=== PATIENT | female | born 1985 | race Caucasian/White ===

== ENCOUNTER 2020-01-03 15:00 | Emergency (ER) | payer MEDICAID ==
[~2020-01-03] VITALS: Ht 157.5 cm; Wt 78.9 kg
[2020-01-03 15:12] VITALS: BP 124/96
--- NOTE | 2020-01-03 15:24 | NUR ---
34 YO FEMALE CO LOWER QUADRANT ABDOMINAL PAIN X 3 WEEKS. DENIES DYSURIA. NKA HX 2 ECTOPIC PREGNANCIES NO RX
[2020-01-03 16:00] LABS: APPEARANCE,URINE CLEAR (CLEAR); BILIRUBIN,URINE 1+ (NEGATIVE); BLOOD, URINE TRACE-I (NEGATIVE); COLOR,URINE YELLOW (YELLOW); LEUKOCYTE ESTERASE ,URINE NEGATIVE (NEGATIVE); NITRITE, URINE NEGATIVE (NEGATIVE); PH,URINE 5.5 (5.0-9.0); UGLUCOSE NEGATIVE (NEGATIVE)
[2020-01-03 16:11] LABS: RBC,URINE 0-5 /HPF (0-5); WBC,URINE 0-5 /HPF (0-5)
--- NOTE | 2020-01-03 16:15 | NUR ---
PT TAKEN TO CT VIA WHEELCHAIR
--- NOTE | 2020-01-03 16:35 | NUR ---
PT RETURNED FROM CT
[2020-01-03] MEDS ORDERED: IBUPROFEN 600 MG TAB PO ONE (17:20)
[2020-01-03 17:25] VITALS: BP 122/90
== END 2020-01-03 17:25 | disposition home or self-care (01) ==
LOC: MED 15:00
DX: N83.201 Unspecified ovarian cyst, right side (principal); R10.30 Lower abdominal pain, unspecified; Z90.722 Acquired absence of ovaries, bilateral
CPT/HCPCS: 74176; 76856; 81001; 81025; 99284; Q0092